=== PATIENT | female | born 1965 | race African-American/Black ===

== ENCOUNTER 2016-03-20 12:13 | Emergency (ER) ==
--- NOTE | 2016-03-20 13:09 | Diag Imaging Result Document ---
PROCEDURE NAME: CHEST-2 VIEWS - 03/20/2016 TWO VIEWS OF THE CHEST: FINDINGS: There is what appears to be a calcified nodule in the right lower lobe laterally. There is no evidence of acute cardiac or pulmonary disease. No previous studies are available for comparison. IMPRESSION: No acute disease.
[2016-03-20] MEDS ORDERED: CATAPRES PO ONE (13:19)
[2016-03-20] MEDS ORDERED: DUONEB (A & A) INH ONE (13:28)
[2016-03-20] MEDS ORDERED: DECADRON IM ONE (13:28)
[2016-03-20] MEDS ORDERED: ALBUTEROL NEB INH ONE (13:28)
--- NOTE | 2016-03-20 13:29 | PROVIDER DOCUMENTATION ---
HPI-Respiratory General <Debby Browne - Last Filed: 03/20/16 13:25> - General Source: patient - History of Present Illness-Resp Quality of Pain: reports: none Severity in ED: reports: moderate Onset/Duration: reports: 2 days ago Timing: reports: getting worse Exposure: reports: unknown cause Cough Quality/Degree: reports: dry cough Episode Frequency: occasional episodes Current Respiratory Medication Therapy: Initiated see nurses note Modifying Factors: improves with: nothing Similar Symptoms Previously?: No Recently seen or treated by another doctor?: No <Tierra Wagner - Last Filed: 03/20/16 13:38> - General Chief Complaint: Cold Symptoms Stated Complaint: SOB/CONGESTION Time Seen by Provider: 03/20/16 13:25 Allergies/Adverse Reactions: Patient Allergies Allergy/AdvReac Type Severity Reaction Status Date / Time No Known Allergies Allergy Verified 02/28/12 11:35 Home Medications: Hydrochlorothiazide 12.5 mg PO DAILY 02/28/12 - History of Present Illness-Resp Nature of Presenting Problem: Reports worsening cough x 2 days with fatigue,congestion,chills,muscle aches. Denies fever,abd pain,n,v. (Tierra Wagner) Review of Systems - Adult - REVIEW OF SYSTEMS - ADULT Constitutional: reports: chills, fever, fatique. denies: night sweats, weight gain, weight loss Eyes: reports: no symptoms reported Ears, Nose, Mouth & Throat: reports: sinus problem. denies: ear pain, throat pain Cardiovascular: denies: chest pain, irregular heart rate, orthopnea, syncope Respiratory: reports: cough, shortness of breath. denies: hemoptysis, pleurisy , wheezing Gastrointestinal: reports: no symptoms reported Genitourinary: reports: no symptoms reported Musculoskeletal: reports: no symptoms reported Integumentary: reports: no symptoms reported Neurological: reports: no symptoms reported Psychiatric: reports: no symptoms reported Endocrine: reports: no symptoms reported Hematologic/Lymphatic: reports: no symptoms reported Allergic/Immunologic: reports: no symptoms reported All Other Systems: Reviewed and Negative <Tierra Wagner - Last Filed: 03/20/16 13:38> Past History - Adult - PAST MEDICAL HISTORY-ADULT Review of Records: reports: Nursing Assessment Review Major Childhood Illnesses: reports: denies history Cardiovascular: reports: HTN - PRIOR SURGERIES/PROCEDURES Surgical/Procedure History: reports: none - IMMUNIZATION STATUS Childhood Immunizations: See Nurse Assessment Flu Vaccine: See Nurse Assessment - FAMILY HISTORY Family History: reviewed, not pertinent - SOCIAL HISTORY Smoking: denies Substance Use: none/never <Tierra Wagner - Last Filed: 03/20/16 13:38> Physical Exam-General - PHYSICAL EXAM-ADULT Initial Vital Signs Reviewed: Yes - CONSTITUTIONAL General Appearance: appears well, alert, no apparent distress - EYES Eyes: PERRL/EOMI, pink conjunctivae - HEAD, EARS, NOSE, MOUTH & THROAT HENMT: normocephalic/atraumatic, moist mucous membranes, normal ENT inspection - NECK Neck: non-tender, full range of motion, supple, normal inspection - RESPIRATORY Respiratory: chest non-tender, normal breath sounds, no pleuratic chest pain, no respiratory distress, no accessory muscle use, wheezing (inspiratory and expiratory) - CARDIOVASCULAR Cardiovascular: normal peripheral pulses, regular rate, rhythm, no edema - GASTROINTESTINAL (ABDOMEN) Abdominal Exam: normal bowel sounds, non tender, soft - LYMPHATIC Lymphatic: no adenopathy - MUSCULOSKELETAL Back Exam: normal inspection, no CVA tenderness, no vertebral tenderness Extremity: normal range of motion, non-tender, normal gait - SKIN Integumentary: normal color, normal turgor, warm/dry - NEUROLOGIC Neurologic: grossly normal, no motor/sensory deficits - PSYCHIATRIC Psych/Mental Status: normal mood/affect, normal thought content, normal thought process, oriented x 3 <Tierra Wagner - Last Filed: 03/20/16 13:38> Progress <Debby Browne - Last Filed: 03/20/16 13:25> - XRAY 1 XRAY: Bilateral XRAY Study: Chest Impression: Normal XRAY Interpretation: nad <Tierra Wagner - Last Filed: 03/20/16 13:38> - PLAN OF CARE/RESULTS Progress/Plan/Lab Results: Orders Category Date Time Status CHEST-2 VIEWS [RAD] Stat Exams 03/20/16 12:[address] Stat Lab 03/20/16 12:24 Completed Albuterol 2.5MG/Ipratrop 0.5MG [Duoneb (A & A)] Med 03/20/16 13:28 Discontinued 3 ml INH NOW ONE Albuterol [Albuterol Neb] Med 03/20/16 13:28 Discontinued 2.5 mg INH NOW ONE Clonidine [Catapres] Med 03/20/16 13:19 Discontinued 0.2 mg PO NOW ONE Dexamethasone [Decadron] Med 03/20/16 13:28 Discontinued 4 mg IM NOW ONE Aerosol Treatments Routine Oth 03/20/16 13:28 Active Aerosol Treatments Stat Oth 03/20/16 13:28 Active Vital Signs - 24 hr 03/20/16 12:18 Temperature 97 F L Pulse Rate 100 H Respiratory 20 Rate Blood Pressure 196/111 O2 Sat by Pulse 100 Oximetry Laboratory Tests 03/20/16 12:24 Influenza A (Rapid) NEGATIVE Influenza B (Rapid) NEGATIVE (Tierra Wagner) Departure - Departure Time of Disposition Order: 13:29 Certified Medical Emergency: Emergent <Debby Browne - Last Filed: 03/20/16 13:25> <Tierra Wagner - Last Filed: 03/20/16 13:38> - Departure DIAGNOSIS: Bronchitis, HTN (hypertension) Disposition: HOME 01 Condition: Stable Additional Instructions: ED Follow Up Instructions: You have been treated by a care provider in the Emergency Department. These instructions are being provided to you so you can have an understanding of how to care for yourself upon discharge. Upon discharge from the Emergency Department, you are responsible for making arrangements for follow-up care by a physician of your choice. Take all prescribed medications as directed. Return to the Emergency Department immediately for any new or worsening symptoms. You may call the Physician Referral phone number at [phone] to obtain a list of Physicians who are taking new patients. Prescriptions: Prednisone [Deltasone] 20 mg PO DIRECTED #12 tablet Lisinopril/Hydrochlorothiazide [Lisinopril-Hctz 20-25 mg Tab] 1 each PO DAILY # 30 tablet Albuterol Sulfate Inhaler [Ventolin Hfa] 2 puff INH Q6H PRN PRN #1 inhaler PRN Reason: Wheezing Azithromycin [Zithromax Z-Jaron] 250 mg PO DIRECTED #1 pkg Referrals: Tray Newman MD [STAFF PHYSICIAN] - None,PCP [Primary Care Provider] - Forms: Return to School/Parent Work Instructions: Acute Bronchitis, [id number], Azithromycin tablets, Hydrochlorothiazide, HCTZ; Lisinopril tablets, Hypertension, [id number], Prednisone tablets Attestation - Physician/ Mid-level Attestation Patient care was provided by Mid-level provider (WINDSHIELD INSTALLER/PA):: Yes Mid-level provider:: Debby Browne Mid-level documentation review:: The Mid-level provider documentation, treatment plan and medical decision making was reviewed by the physician who agrees with all treatment and medical decision making by the MLP. <Debby Browne - Last Filed: 03/20/16 13:25> - Scribe Verification/Attestation Scribe:: Tierra Wagner Acting as Scribe for:: Debby Browne Scribe documention review:: This chart was documented by a scribe and accurately reflects the service the provider performed and the decisions made by the provider. <Tierra Wagner - Last Filed: 03/20/16 13:38> Physician Attestation
[2016-03-20 14:34] VITALS: BP 193/111
== END 2016-03-20 14:32 | disposition home or self-care (01) ==
LOC: P.ED 12:13
DX: J40 Bronchitis, not specified as acute or chronic (principal); I10 Essential (primary) hypertension; R05 Cough; R06.02 Shortness of breath; R09.81 Nasal congestion; R53.83 Other fatigue; R50.9 Fever, unspecified; M79.1 Myalgia; R06.2 Wheezing; Z79.899 Other long term (current) drug therapy
CPT/HCPCS: 71020; 87804; 94640; 96372; J1100